=== PATIENT | female | born 1945 | race Caucasian/White ===

== ENCOUNTER 2017-05-30 04:50 | Emergency (ER) | payer OTHER ==
[~2017-05-30] VITALS: Ht 160 cm; Wt 95.5 kg
[~2017-05-30 04:50] MED LIST: CARAFATE1 GM PO; MOBIC7.5 MG PO; PERCOCET 5/31 TABLET PO; PRAVASTATIN SOD10 MG PO; PRILOSEC10 MG PO
[2017-05-30 04:54] VITALS: BP 134/63
[2017-05-30] MEDS ORDERED: OXYCODONE-APAP1 EACH PO (08:46)
[2017-05-30] MEDS ORDERED: MELOXICAM7.5 MG PO (08:47)
[2017-05-30] MEDS ORDERED: PREDNISONE20 MG PO (08:51)
[2017-05-30] MEDS ORDERED: NAPROXEN500 MG PO (08:51)
[2017-05-30] MEDS ORDERED: FLEXERIL10 MG PO (08:51)
[2017-05-30] MEDS ORDERED: LIDODERM 5% P1 PATCH TD (08:51)
== END 2017-05-30 09:46 | disposition home or self-care (01) ==
LOC: EME 04:50
DX: M54.42 Lumbago with sciatica, left side (principal); E78.5 Hyperlipidemia, unspecified; K21.9 Gastro-esophageal reflux disease without esophagitis; E66.9 Obesity, unspecified; Z68.37 Body mass index [BMI] 37.0-37.9, adult
CPT/HCPCS: 99281; 99284; J1885; J2930

== ENCOUNTER 2017-07-01 08:36 | Day surgery (SDC) | payer OTHER ==
[~2017-07-01] VITALS: Ht 160 cm; Wt 93.4 kg
[~2017-07-01 08:36] MED LIST changes: +FLEXERIL10 MG PO; +LIDODERM 5% P1 PATCH TD; +MELOXICAM7.5 MG PO; +NAPROXEN500 MG PO; +OXYCODONE-APAP1 EACH PO; +PREDNISONE20 MG PO
== END 2017-07-01 10:05 | disposition home or self-care (01) ==
LOC: PAIN 08:36 → SDC 09:15 → PAIN 09:15
DX: M47.816 Spondylosis without myelopathy or radiculopathy, lumbar region (principal); M43.17 Spondylolisthesis, lumbosacral region; M51.36 Other intervertebral disc degeneration, lumbar region; M19.90 Unspecified osteoarthritis, unspecified site; R26.2 Difficulty in walking, not elsewhere classified; E66.01 Morbid (severe) obesity due to excess calories; Z68.37 Body mass index [BMI] 37.0-37.9, adult; K21.9 Gastro-esophageal reflux disease without esophagitis; E78.00 Pure hypercholesterolemia, unspecified; Z79.82 Long term (current) use of aspirin; Z88.8 Allergy status to other drugs, medicaments and biological substances
CPT/HCPCS: J1030; J2250; J3010; S0020

== ENCOUNTER 2017-07-08 07:21 | Day surgery (SDC) | payer OTHER ==
[~2017-07-08] VITALS: Ht 160 cm; Wt 93.4 kg
== END 2017-07-08 09:05 | disposition home or self-care (01) ==
LOC: PAIN 07:21 → SDC 08:00 → PAIN 08:00
PROC: 3E0T33Z Introduction of Anti-inflammatory into Peripheral Nerves and Plexi, Percutaneous Approach (ICD-10-PCS; principal; 2017-07-08)
PROC: 3E0T3BZ Introduction of Anesthetic Agent into Peripheral Nerves and Plexi, Percutaneous Approach (ICD-10-PCS; principal; 2017-07-08)
PROC: BR161ZZ Fluoroscopy of Lumbar Facet Joint(s) using Low Osmolar Contrast (ICD-10-PCS; principal; 2017-07-08)
DX: M47.816 Spondylosis without myelopathy or radiculopathy, lumbar region (principal); M43.17 Spondylolisthesis, lumbosacral region; M48.061 Spinal stenosis, lumbar region without neurogenic claudication; M51.36 Other intervertebral disc degeneration, lumbar region; F41.9 Anxiety disorder, unspecified; K21.9 Gastro-esophageal reflux disease without esophagitis; E78.00 Pure hypercholesterolemia, unspecified; E66.01 Morbid (severe) obesity due to excess calories; Z68.36 Body mass index [BMI] 36.0-36.9, adult; Z79.82 Long term (current) use of aspirin
CPT/HCPCS: J1030; J2250; J3010; S0020

== ENCOUNTER 2017-09-09 07:19 | Day surgery (SDC) | payer OTHER ==
[~2017-09-09] VITALS: Ht 160 cm; Wt 91.6 kg
[~2017-09-09 07:19] MED LIST changes: +CENTRUM SILVER1 EAC4 PO; +PRAVASTATIN SOD20 MG PO
== END 2017-09-09 09:10 | disposition home or self-care (01) ==
LOC: PAIN 07:19 → SDC 08:00 → PAIN 08:00
PROC: BR161ZZ Fluoroscopy of Lumbar Facet Joint(s) using Low Osmolar Contrast (ICD-10-PCS; principal; 2017-09-09)
PROC: 3E0T3TZ Introduction of Destructive Agent into Peripheral Nerves and Plexi, Percutaneous Approach (ICD-10-PCS; principal; 2017-09-09)
DX: M47.816 Spondylosis without myelopathy or radiculopathy, lumbar region (principal); M99.83 Other biomechanical lesions of lumbar region; M51.36 Other intervertebral disc degeneration, lumbar region; M43.17 Spondylolisthesis, lumbosacral region; R26.2 Difficulty in walking, not elsewhere classified; K21.9 Gastro-esophageal reflux disease without esophagitis; E78.00 Pure hypercholesterolemia, unspecified; E66.01 Morbid (severe) obesity due to excess calories; Z68.36 Body mass index [BMI] 36.0-36.9, adult; M19.90 Unspecified osteoarthritis, unspecified site; Z79.82 Long term (current) use of aspirin; Z88.8 Allergy status to other drugs, medicaments and biological substances
CPT/HCPCS: J1030; J2250; S0020

== ENCOUNTER 2017-09-16 07:27 | Day surgery (SDC) | payer OTHER ==
[~2017-09-16] VITALS: Ht 160 cm; Wt 91.6 kg
== END 2017-09-16 10:02 | disposition home or self-care (01) ==
LOC: PAIN 07:27 → SDC 08:00 → PAIN 08:00
DX: M47.816 Spondylosis without myelopathy or radiculopathy, lumbar region (principal); M48.061 Spinal stenosis, lumbar region without neurogenic claudication; M43.17 Spondylolisthesis, lumbosacral region; M51.36 Other intervertebral disc degeneration, lumbar region; F41.9 Anxiety disorder, unspecified; E78.00 Pure hypercholesterolemia, unspecified; E66.01 Morbid (severe) obesity due to excess calories; Z68.35 Body mass index [BMI] 35.0-35.9, adult; Z79.82 Long term (current) use of aspirin; Z79.891 Long term (current) use of opiate analgesic
CPT/HCPCS: J1030; J2250; S0020